=== PATIENT | female | born 1980 | race Caucasian/White ===

== ENCOUNTER 2020-04-03 21:51 | Emergency (ER) | payer OTHER, SELFPAY ==
[2020-04-03 22:09] VITALS: BP 103/68; PULSE 89; RESP 20; TEMP 37.4; O2SAT 97; BMI 23.8
--- NOTE | 2020-04-03 23:02 | ED_ITS ---
HPI - Asthma General Chief Complaint: Asthma Stated Complaint: Asthma Time Seen by Provider: 04/03/20 23:02 Source: patient Mode of arrival: ambulatory Limitations: no limitations History of Present Illness HPI Narrative: This is a 40-year-old female smoker who states that she was here couple weeks ago and treated asthma exacerbation and since that time she has run out nebulized vials and has had progressively worsening wheeze and shortness of breath for the past couple of days. This is not been associated with any fevers, chills, sore throat, recent travel, or COVID-19 positive individuals to the best of her knowledge. Related Data Previous Rx's Medication Instructions Recorded albuterol sulfate 0.63 mg INHALATION Q4-6H PRN #100 04/04/20 vial albuterol sulfate [Ventolin HFA] 2 puff INHALATION Q4-6H PRN #1 ea 04/04/20 prednisone 40 mg PO DAILY #8 tab 04/04/20 Allergies Allergy/AdvReac Type Severity Reaction Status Date / Time bee pollen [BEE STINGS] Allergy Severe HIVES Verified 04/03/20 22:45 Sulfa (Sulfonamide Allergy Unknown LOSS OF Verified 04/03/20 22:45 Antibiotics) MUSCLE [SULFA (SULFONAMIDE CONTROL ANTIBIOTICS)] sulfamethoxazole Allergy Unknown LOSS OF Verified 04/03/20 22:45 [From BACTRIM] MUSCLE CONTROL trimethoprim [From BACTRIM] Allergy Unknown LOSS OF Verified 04/03/20 22:45 MUSCLE CONTROL From COMPAZINE Allergy Unknown MIGRAINE Uncoded 02/29/20 14:54 Review of Systems Review of Systems: Pertinent positives and negatives as stated in HPI 10 point review of systems is otherwise negative. [facility] Past Medical History Source: nursing notes reviewed Medical History Asthma Hx of migraine headaches Social History Social History Alcohol intake: never Smoking Status: Light tobacco smoker Smoked in Last 30 Days: Yes Use of substances other than those prescribed or required for medical reasons: No Advance Directives: No Advance Directives Information Provided: No Physical Exam Vital Signs: Vital Signs: Vital Signs Temp Pulse Resp BP Pulse Ox 04/04/20 00:00 98.4 F 102 H 16 94/48 L 97 04/03/20 22:09 99.3 F 89 20 103/68 97 Body Mass Index 23.8 VITAL SIGNS: Reviewed. GENERAL: Well developed, well nourished, in no acute distress. HEAD: Normocephalic/atraumatic, EYES: PERRLA, EOMI intact without pain, no nystagmus/pallor/icterus noted EARS: Ext canals without abnormality, TMs non-bulging and non-erythematous NOSE: Nares patent bilateral OROPHARYNX: no oral lesions noted, posterior pharynx clear and non-erythematous without noted tonsillar enlargement/erythema/exudates NECK: Supple, no adenopathy LUNGS: Diffuse expiratory wheezing rhonchi but easy breathing. No adventitious sounds or accessory muscle use. SpO2<97%> CARDIOVASCULAR: Regular rate and rhythm without noted murmurs, no JVD or lower extremity edema. ABDOMEN: Soft, non-tender, non-distended with bowel sounds. No rigidity. No guarding. No palpable masses or hernias noted MUSCULOSKELETAL: No tenderness, deformities, or effusions noted on gross inspection. EXTREMITIES: No cyanosis, clubbing or edema. SKIN: Inspection of the skin reveals no rashes, ulcerations, jaundice, pallor, or petechiae. NEUROLOGIC: Alert and oriented x 4. Strength and sensation to light touch were grossly intact x 4. Course Course Course Narrative: This is a 40-year-old female with history and clinical presentation consistent with likely asthma exacerbation and less likely pneumo dhara. Review of all investigations is negative for any systemic evidence infection and no acute findings on the chest x-ray. On re-evaluation patient has had significant improvement after receiving the Solu-Medrol and hour long nebulized treatment. All results and findings were discussed with the patient at bedside and she will be discharged in stable condition and she was instructed she must self quarantine as she requested a COVID-19 testing while here in the emergency department. MDM - Asthma Lab Data Result diagrams: 04/04/20 00:29 04/04/20 01:04 Labs: Lab Results 04/04/20 04/04/20 Range/Units 00:29 00:29 WBC 8.1 (4.8-10.8) X10*3/uL RBC 4.29 (4.20-5.50) X10*6/uL Hgb 11.3 L (12.0-16.0) g/dl Hct 35.0 L (37-47) % MCV 81.6 (80-98) fL MCH 26.3 L (27.0-33.0) pg MCHC 32.3 (31.0-35.0) g/dl RDW 14.7 (11.0-16.0) % Plt Count 405 H (160-400) X10*3/uL MPV 9.0 L (9.4-12.3) fL Immature Gran % (Auto) 0.1 (0.0-0.4) % Neut % (Auto) 40.0 L (45-73) % Lymph % (Auto) 40.3 H (20-40) % [place] % (Auto) 7.2 (2-11) % Eos % (Auto) 11.2 H (0-4) % Baso % (Auto) 1.2 (0-2) % Lymph # (Auto) 3.3 (1.2-4.9) X10*3/uL [place] # (Auto) 0.6 (0.1-1.2) X10*3/uL Eos # (Auto) 0.9 H (0.0-0.4) X10*3/uL Baso # (Auto) 0.1 (0.0-0.2) X10*3/uL Abs Immat Gran (auto) 0.01 (0.00-0.03) X10*3/uL Absolute Neuts (auto) 3.2 (2.0-8.3) X10*3/uL Absolute Nucleated RBC 0.000 (0.0-0.012) X10*3/uL Nucleated RBC % (auto) 0.0 (0.0-0.2) /100WBC Sodium Cancelled Potassium Cancelled Chloride Cancelled Carbon Dioxide Cancelled Anion Gap Cancelled BUN Cancelled Creatinine Cancelled Estim Creat Clear Calc Cancelled Estimated GFR Cancelled Random Glucose Cancelled Calcium Cancelled Total Bilirubin Cancelled AST Cancelled ALT Cancelled Alkaline Phosphatase Cancelled Total Protein Cancelled Albumin Cancelled Discharge Plan Discharge Clinical Impression: Asthma with acute exacerbation Qualifiers: Asthma severity: mild Asthma persistence: unspecified Qualified Code(s): J45.901 - Unspecified asthma with (acute) exacerbation Patient Disposition: Home, Self-Care Instructions: Asthma (ED) Additional Instructions: YOU MUST SELF QUARANTINE UNTIL THE RESULTS OF YOUR COVID-19 TEST ARE RETURN TO. SOMEBODY WILL BE CALLING TO INFORM YOU OF YOUR RESULTS. THIS MEANS THAT YOU ARE NOT ABLE TO GO TO WORK OR OUT IN SOCIAL ENVIRONMENT UNTIL THE RESULTS HAVE BEEN RETURNED. The patient and/or family acknowledge understanding of results (as applicable), diagnosis, treatment plan, need for follow up, and symptoms that should prompt a return to the emergency room. Prescriptions: New albuterol sulfate [Ventolin HFA] 90 mcg/actuation HFA aerosol inhaler 2 puff inhalation Q4-6H PRN (Reason: shortness of breath or wheezing) Qty: 1 RF: 0 albuterol sulfate 0.63 mg/3 mL solution for nebulization 0.63 mg inhalation Q4-6H PRN (Reason: shortness of breath or wheezing) Qty: 100 RF: 0 prednisone 20 mg tablet 40 mg PO DAILY Qty: 8 RF: 0 Referrals: Physician,None [Primary Care Provider] - 2 days
[2020-04-03] MEDS: Albuterol Sulfate (0.083%) 2.5 MG/3 ML VIAL.NEB 10 MG INHALE (23:31)
[2020-04-04] VITALS: BP 94/48; PULSE 102; RESP 16; TEMP 36.9; O2SAT 97
--- NOTE | 2020-04-04 | XR_ITS ---
EXAMINATION: CHEST 1 VIEW CLINICAL INFORMATION: Cough. COMPARISON: 03/06/2020. TECHNIQUE: An AP view of the chest is provided. FINDINGS: The cardiac silhouette is not enlarged. The mediastinal and hilar contours are unremarkable. There are neither pleural effusions nor pneumothoraces. There are no consolidations. The osseous structures are stable. IMPRESSION: No evidence for acute disease.
[2020-04-04] MEDS: methylPREDNISolone Sod Succ/PF 125 MG/2 ML VIAL IVPUSH (00:34)
[2020-04-04 00:36] LABS: MANUAL DIFF FLAG NO
[2020-04-04 00:38] LABS: Basophils Absolute Auto 0.1 X10*3/uL (0.0-0.2); Basophils Percent Auto 1.2 % (0-2); Eosinophils Absolute Auto 0.9 X10*3/uL (0.0-0.4); Eosinophils Percent Auto 11.2 % (0-4); Hemoglobin 11.3 g/dl (12.0-16.0); Imm Gran Abs Auto 0.01 X10*3/uL (0.00-0.03); Imm Gran Pct Auto 0.1 % (0.0-0.4); Lymphocytes Absolute Auto 3.3 X10*3/uL (1.2-4.9); Lymphocytes Percent Auto 40.3 % (20-40); Mean Corpuscular HGB Conc 32.3 g/dl (31.0-35.0); Mean Corpuscular Hemoglobin 26.3 pg (27.0-33.0); Mean Corpuscular Volume 81.6 fL (80-98); Monocytes Absolute Auto 0.6 X10*3/uL (0.1-1.2); Monocytes Percent Auto 7.2 % (2-11); Neutrophils Absolute Auto 3.2 X10*3/uL (2.0-8.3); Platelet Count 405 X10*3/uL (160-400); Red Blood Count 4.29 X10*6/uL (4.20-5.50); Red Cell Distribution Width 14.7 % (11.0-16.0); White Blood Count 8.1 X10*3/uL (4.8-10.8)
[2020-04-04 01:39] LABS: Alanine Aminotransferase 8 U/L (0-31); Alkaline Phosphatase 98 U/L (39-117); Anion Gap 12 (12-20); Aspartate Amino Transferase 14 U/L (5-31); Bilirubin Total 0.3 mg/dL (0.0-1.0); Blood Urea Nitrogen 9 mg/dL (9-16); Calcium 8.7 mg/dL (8.4-10.2); Carbon Dioxide 26 mmol/L (22-29); Chloride 105 mmol/L (96-108); Creatinine Clr Calc Pharmacy 69.4; Estimated Glomerular Filt Rate > 60; Glucose Random 113 mg/dL (60-115); Potassium 3.7 mmol/l (3.3-5.1); Sodium 139 mmol/L (135-145); Total Protein 7.2 g/dL (6.5-8.0)
[2020-04-04 01:59] VITALS: BP 112/71; PULSE 104; RESP 16; TEMP 36.8; O2SAT 95
== END 2020-04-04 02:24 | disposition home or self-care (01) ==
PROVIDERS: Emergency Provider Student in an Organized Health Care Education/Training Program
DX: J45.901 Unspecified asthma with (acute) exacerbation (principal); Z20.828 Contact with and (suspected) exposure to other viral communicable diseases; Z79.899 Other long term (current) drug therapy
CPT/HCPCS: 36415; 71045; 80053; 85025; 87635; 96360; 99284; J2930

== ENCOUNTER 2020-04-22 23:26 | Emergency (ER) | payer OTHER, SELFPAY ==
[2020-04-22 23:37] VITALS: BP 188/126; PULSE 130; RESP 24; TEMP -17.7; TEMP 0; O2SAT 88; BMI 26.5
--- NOTE | 2020-04-22 23:41 | ED_ITS ---
HPI - General Adult General Chief complaint: Asthma Stated complaint: Asthma Time Seen by Provider: 04/22/20 23:33 Source: patient Mode of arrival: ambulatory Limitations: no limitations History of Present Illness HPI narrative: patient comes to the emergency room complaining of an asthma exacerbation. Patient states prior to arrival she used her inhaler and neb machine without success. On arrival, per nursing, oxygen saturation 84% on room air MD complaint: asthma exacerbation Related Data Previous Rx's Medication Instructions Recorded albuterol sulfate 0.63 mg INHALATION Q4-6H PRN #100 04/04/20 vial albuterol sulfate [Ventolin HFA] 2 puff INHALATION Q4-6H PRN #1 ea 04/04/20 prednisone 40 mg PO DAILY #8 tab 04/04/20 albuterol sulfate 2 puff INHALATION Q4-6H PRN #18 g 04/23/20 albuterol sulfate 5 mg INHALATION Q6H PRN #30 ea 04/23/20 prednisone 50 mg PO DAILY #1 tab 04/23/20 Allergies Allergy/AdvReac Type Severity Reaction Status Date / Time bee pollen [BEE STINGS] Allergy Severe HIVES Verified 04/03/20 22:45 Sulfa (Sulfonamide Allergy Unknown LOSS OF Verified 04/03/20 22:45 Antibiotics) MUSCLE [SULFA (SULFONAMIDE CONTROL ANTIBIOTICS)] sulfamethoxazole Allergy Unknown LOSS OF Verified 04/03/20 22:45 [From BACTRIM] MUSCLE CONTROL trimethoprim [From BACTRIM] Allergy Unknown LOSS OF Verified 04/03/20 22:45 MUSCLE CONTROL From COMPAZINE Allergy Unknown MIGRAINE Uncoded 02/29/20 14:54 Review of Systems Review of Systems: Constitutional : No Weight loss, No Fever, No Chills, No Night Sweats, No Fatigue, No Malaise ENT/Mouth : No Hearing loss, No Ear Pain, No Nasal Congestion, No Sinus Pain, No Hoarseness, No sore throat, No Rhinorrhea, No Swallowing Difficulty Eyes: No Eye Pain, No Swelling, No Redness, No Foreign Body, No Discharge, No Vision Changes Cardiovascular : No Chest Pain, No SOB, No Dyspnea on Exertion, No Orthopnea, No Edema, No Palpitations Respiratory : patient complaining of wheezing, shortness of breath Gastrointestinal : No Nausea, No Vomiting, No Diarrhea, No Constipation, No abdominal Pain, No Hematochezia, No Melena Genitourinary : no irregular bleeding, No Dysuria, No Urinary Frequency, No Hematuria, No Urinary Incontinence, No Urgency, No Flank Pain, No Urinary Flow Changes, No Hesitancy Musculoskeletal : No joint pain, No Myalgias, No Joint Swelling Skin :, No rash Neuro : No Weakness, No Numbness, No Paresthesias, No Loss of Consciousness, No Dizziness, No Headache Psych : No Anxiety/Panic, No Depression, No SI/HI/AH/VH, No Social Issues, Heme/Lymph: No Bruising, No Bleeding,No Lymphadenopathy Endocrine : No Polyuria, No Polydipsia, No Temperature Intolerance Yes all other systems are reviewed and are negative [facility] Past Medical History Medical History (Updated 04/23/20 @ 03:18 by Allison Graves MD) Asthma Chronic post-traumatic stress disorder (PTSD) Hx of migraine headaches Social History Social History Alcohol intake: unknown Smoking Status: Current every day smoker Smoked in Last 30 Days: Yes Use of substances other than those prescribed or required for medical reasons: Yes Substance Use Type: Heroin, 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 Oriented X3. speaking in short sentences Eyes: Pupils equal, round and reactive to light. ENT: Pharynx normal. Neck: Normal inspection. Neck supple. No lymph nodes noted. No crepitus CVS: tachycardic. Pulses normal. Normal S1 and S2 Respiratory: moderate respiratory distress, bilateral wheezing, moderate air movement Abdomen: Soft and nontender. No rigidity. No distention. good BS x4 Skin: patient has significant scarring in both upper extremities from IV track gotti and from previous I and D's, patient's arm looked borderline infected especially in the right distal upper extremity Extremities: No lower extremity edema. No lower extremity edema. No Lacerations. No Rash Neuro: Oriented X 3. No motor deficit. No sensory deficit. Moving all extermities. No slurred speech. Course Course Course Narrative: I discussed with the patient that we need blood work to rule out infection coming from her skin, and to give her IV medications for her asthma exacerbation. Patient declined. Patient states that she only wants p.o. medication and no lab work after 60 mg of oral prednisone, and a breathing treatment, patient's oxygen saturation remains at 88% on room air, patient is now on nasal cannula 4 L saturating at 96%. Patient's blood pressure is in the high 80s, I discussed with the patient there is a possibility that she may be septic from all the skin infections. Patient declined getting fluids at this time, still Declining blood work or IV placement. patient states that she feels much better after the nebulization treatment, however patient's oxygen saturation keeps dropping to 88 89% on room air. I asked patient to consider admission which I strongly recommend. Patient states that as long as she has prednisone and nebulization medication at home she will be fine. I discussed with the patient that if he leaves he will be against medical advice, and to return if her breathing worsens patient is alert and oriented x3, no acute distress, I discussed with the patient the risks of leaving against medical advice including . Discharge Plan Discharge Clinical Impression: Asthma with acute exacerbation Qualifiers: Asthma severity: unspecified severity Asthma persistence: unspecified Qualified Code(s): J45.901 - Unspecified asthma with (acute) exacerbation Patient Disposition: Left Against Medical Advice Prescriptions: New prednisone 50 mg tablet 50 mg PO DAILY Qty: 1 RF: 0 albuterol sulfate 2.5 mg/0.5 mL solution for nebulization 5 mg inhalation Q6H PRN (Reason: bronchospasm) Qty: 30 RF: 0 albuterol sulfate 90 mcg/actuation HFA aerosol inhaler 2 puff inhalation Q4-6H PRN (Reason: shortness of breath or wheezing) Qty: 18 RF: 0 No Action albuterol sulfate [Ventolin HFA] 90 mcg/actuation HFA aerosol inhaler 2 puff inhalation Q4-6H PRN (Reason: shortness of breath or wheezing) Qty: 1 RF: 0 albuterol sulfate 0.63 mg/3 mL solution for nebulization 0.63 mg inhalation Q4-6H PRN (Reason: shortness of breath or wheezing) Qty: 100 RF: 0 prednisone 20 mg tablet 40 mg PO DAILY Qty: 8 RF: 0
[2020-04-22] MEDS: predniSONE 20 MG TABLET 60 MG PO (23:45)
[2020-04-22] MEDS: Albuterol Sulfate (0.083%) 2.5 MG/3 ML VIAL.NEB 10 MG INHALE (23:48)
[2020-04-23] VITALS: BP 98/68; PULSE 108; RESP 12; TEMP 37; O2SAT 94
[2020-04-23 00:45] VITALS: BP 106/94; PULSE 99; RESP 16; O2SAT 94
--- NOTE | 2020-04-23 00:53 | PC.NURSE ---
patient reports improvement post hour long. patient reporting reproducable chest pain and wheezing when force exhaling. patient speaking full sentences without difficulty. gingerale provided.
--- NOTE | 2020-04-23 01:13 | PC.NURSE ---
Md aware of soft pressure. per md, encourage po fluid intake due to repeated refusal for iv. patient and provider's plan at this time to attempt 1 more hour long neb, then reconsider iv and admission. rt called to bedside for reeval
[2020-04-23 01:26] VITALS: BP 106/58; PULSE 97; RESP 16; O2SAT 97
[2020-04-23] MEDS: Albuterol Sulfate (0.083%) 2.5 MG/3 ML VIAL.NEB 10 MG INHALE (01:27)
[2020-04-23 02:23] VITALS: BP 107/62; PULSE 98; RESP 13; O2SAT 95
[2020-04-23] MEDS: LORazepam 0.5 MG TABLET PO (03:25)
== END 2020-04-23 03:30 | disposition left against medical advice (07) ==
PROVIDERS: Emergency Provider Emergency Medicine; PCP Internal Medicine
DX: J45.901 Unspecified asthma with (acute) exacerbation (principal); F17.200 Nicotine dependence, unspecified, uncomplicated; Z71.6 Tobacco abuse counseling; Z79.899 Other long term (current) drug therapy
CPT/HCPCS: 94640; 94644; 94645; 99284

== ENCOUNTER 2023-10-16 17:57 | Emergency (ER) | payer MEDICAID, SELFPAY ==
[2023-10-16] VITALS (7 sets, daily range): BP systolic 102–117; BP diastolic 57–69; PULSE 92–114; RESP 14–24; TEMP 36.6–37; O2SAT 88–98; BMI 25.6
--- NOTE | ~2023-10-16 | XR_ITS ---
EXAMINATION: XR CHEST CLINICAL INFORMATION: Cough, shortness of breath, rule out pneumonia COMPARISON: Chest radiograph 04/04/2020 TECHNIQUE: 2 views of the chest were obtained. FINDINGS: The lungs are well expanded. No focal consolidation, effusion, edema, or pneumothorax. The cardiomediastinal silhouette is within normal limits for technique and unchanged. No acute osseous abnormality. XR/XR chest 2V IMPRESSION: No acute pulmonary disease. No significant interval change compared to 04/04/2020.
[2023-10-16] MEDS: Albuterol Sulfate 5 MG, Albuterol/Iprat 2.5/0.5MG 3 ML 3 ML INHALE (18:21)
--- NOTE | 2023-10-16 18:21 | PC.NURSE ---
Pt presents to ED from home, reports SOB X1 week worsening. Pt has hx of asthma, has been using inhaler daily and ran out today. Pt reports frequent cough with clear mucus and increase in congestion. Pt reports pain in LLQ ABD intermittent for past couple of days, sharp, 2/10 at this time. Pt also reports pain across anterior chest with breathing and coughing. Pt alert and oriented. Pt noted to have increase in RR, frequent cough. SPO2 on RA 91-93%. 

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
--- NOTE | 2023-10-16 18:28 | PC.NURSE ---
Pt currently on neb from [facility], reports she is feeling better. Breathing less labored, SPO2 93-95%.
[2023-10-16] MEDS: predniSONE 20 MG TABLET 80 MG PO (18:33)
[2023-10-16] MEDS: Albuterol Sulfate 90 MCG 8 GM INHALER 8 PUFF INHALE (18:40)
[2023-10-16] MEDS: Doxycycline Monohydrate 100 MG CAPSULE PO (20:44)
[2023-10-16] MEDS: Amoxicillin 500 MG CAPSULE 1000 MG PO (20:44)
== END 2023-10-16 20:50 | disposition home or self-care (01) ==
PROVIDERS: Emergency Provider Emergency Medicine Emergency Medical Services
DX: J20.9 Acute bronchitis, unspecified (principal); J45.901 Unspecified asthma with (acute) exacerbation; R06.02 Shortness of breath; R05.9 Cough, unspecified; F17.210 Nicotine dependence, cigarettes, uncomplicated; F43.10 Post-traumatic stress disorder, unspecified; Z79.899 Other long term (current) drug therapy
CPT/HCPCS: 71046; 94640; 99284; 99285

== ENCOUNTER → 2024-06-22 14:16 | Outpatient (BNV) | payer MEDICAID, SELFPAY | PROVIDERS: Visit Provider Radiology Diagnostic Radiology | DX: R06.00 Dyspnea, unspecified (principal) | CPT/HCPCS: 71046 ==